=== PATIENT | male | born 2000 | race Asian ===

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

== ENCOUNTER 2019-03-16 17:34 | Outpatient (CLI) | payer OTHER | END 2019-03-16 19:09 | disposition home or self-care (01) | LOC: RAD 17:34 | DX: R10.32 Left lower quadrant pain (principal) | CPT/HCPCS: 81000 ==

== ENCOUNTER 2020-01-01 14:34 | Outpatient (CLI) | payer OTHER | END 2020-01-01 20:51 | disposition home or self-care (01) | LOC: LAB 14:34 | DX: R50.81 Fever presenting with conditions classified elsewhere (principal); R07.89 Other chest pain; R53.83 Other fatigue | CPT/HCPCS: 87635; G2023; U0003 ==

== ENCOUNTER 2020-01-05 13:17 | Outpatient (CLI) | payer OTHER | END 2020-01-05 20:32 | disposition home or self-care (01) | LOC: LAB 13:17 | DX: R43.2 Parageusia (principal); R43.0 Anosmia; R50.81 Fever presenting with conditions classified elsewhere | CPT/HCPCS: 87635; G2023; U0003 ==

== ENCOUNTER 2020-02-17 20:41 | Emergency (ER) | payer OTHER ==
[~2020-02-17] VITALS: Ht 185.4 cm; Wt 104.3 kg
[2020-02-17 20:57] VITALS: TEMP 98.7
[2020-02-17 21:43] LABS: PLATELET COUNT 305 K/uL (142-355)
[2020-02-17 22:58] VITALS: BP 139/82
== END 2020-02-17 23:01 | disposition home or self-care (01) ==
LOC: ED 20:41
PROVIDERS: Emergency Medicine Emergency Medical Services
DX: G44.209 Tension-type headache, unspecified, not intractable (principal); R11.2 Nausea with vomiting, unspecified
CPT/HCPCS: 80053; 81000; 85027; 96360; 96375; 99284; J1885; J2405

== ENCOUNTER 2020-03-07 18:32 | Emergency (ER) | payer OTHER ==
[~2020-03-07] VITALS: Ht 185.4 cm; Wt 97.1 kg
[2020-03-07 21:00] VITALS: BP 145/75; TEMP 98.9
== END 2020-03-07 21:02 | disposition home or self-care (01) ==
LOC: ED 18:32
DX: K29.00 Acute gastritis without bleeding (principal); R51.9 Headache, unspecified
CPT/HCPCS: 99281

== ENCOUNTER 2020-10-06 19:19 | Emergency (ER) | payer OTHER ==
[~2020-10-06] VITALS: Ht 185.4 cm; Wt 92.1 kg
[2020-10-06 21:20] VITALS: BP 131/79; TEMP 97.7
== END 2020-10-06 21:20 | disposition home or self-care (01) ==
LOC: ED 19:19
DX: G44.209 Tension-type headache, unspecified, not intractable (principal); S39.012A Strain of muscle, fascia and tendon of lower back, initial encounter; V49.50XA Passenger injured in collision with unspecified motor vehicles in traffic accident, initial encounter; Y92.89 Other specified places as the place of occurrence of the external cause
CPT/HCPCS: 99283; J2360

== ENCOUNTER 2020-11-26 21:35 | Emergency (ER) | payer OTHER ==
[~2020-11-26] VITALS: Ht 185.4 cm; Wt 104.3 kg
[2020-11-26 23:38] VITALS: BP 127/74; TEMP 98.9
== END 2020-11-26 23:38 | disposition home or self-care (01) ==
LOC: ED 21:35
DX: I31.9 Disease of pericardium, unspecified (principal); K21.9 Gastro-esophageal reflux disease without esophagitis
CPT/HCPCS: 93005; 96372; 99283; J1885

== ENCOUNTER 2021-01-18 16:19 | Outpatient (CLI) | payer OTHER | END 2021-01-18 19:33 | disposition home or self-care (01) | LOC: RAD 16:19 | PROVIDERS: ATTEND Nurse Practitioner Family | DX: K59.09 Other constipation (principal) ==

== ENCOUNTER 2022-08-26 11:20 | Emergency (ER) | payer OTHER ==
[~2022-08-26] VITALS: Ht 185.4 cm; Wt 104.4 kg
[2022-08-26 11:20] VITALS: TEMP 97.8
[2022-08-26 12:25] LABS: PLATELET COUNT 325 K/uL (142-355)
[2022-08-26 12:26] LABS: POTASSIUM 3.7 mmol/L (3.6-5.2)
[2022-08-26 12:30] VITALS: BP 155/102
== END 2022-08-26 13:16 | disposition home or self-care (01) ==
LOC: ED 11:20
PROVIDERS: Family Medicine
DX: S06.0X9A Concussion with loss of consciousness of unspecified duration, initial encounter (principal); S20.211A Contusion of right front wall of thorax, initial encounter; S27.321A Contusion of lung, unilateral, initial encounter; R21 Rash and other nonspecific skin eruption; V48.5XXA Car driver injured in noncollision transport accident in traffic accident, initial encounter; Y92.89 Other specified places as the place of occurrence of the external cause
CPT/HCPCS: 80053; 85027; 96374; 99284; J1885